=== PATIENT | female | born 1965 | race Caucasian/White ===

== ENCOUNTER → 2017-09-04 | Outpatient (CLI) | payer BC ==
[~2017-09-04] MED LIST: IRON; LEVSOD50; LEVSOD50 PO; PTU PO; Pepcid40 MG PO; [UNRECOGNIZED DRUG - OTHER]
== END | disposition home or self-care (01) ==
LOC: LAB SHORT 10:36
DX: R30.0 Dysuria (principal)
CPT/HCPCS: 87086

== ENCOUNTER → 2017-10-15 | Outpatient (CLI) | payer BC | LOC: OLS 13:01 | DX: N89.8 Other specified noninflammatory disorders of vagina (principal) | CPT/HCPCS: 87070; 87205 ==

== ENCOUNTER → 2018-01-25 | Outpatient (CLI) | payer BC | END | disposition home or self-care (01) | LOC: PLD 13:27 → LAB SHORT 13:27 | DX: D22.5 Melanocytic nevi of trunk (principal); L81.4 Other melanin hyperpigmentation | CPT/HCPCS: 88305 ==

== ENCOUNTER → 2018-02-08 | Outpatient (CLI) | payer BC | END | disposition home or self-care (01) | LOC: OLS 14:43 → LAB SHORT 14:43 | PROVIDERS: Nurse Practitioner Women's Health | DX: Z12.4 Encounter for screening for malignant neoplasm of cervix (principal); Z91.89 Other specified personal risk factors, not elsewhere classified | CPT/HCPCS: 87624; G0123 ==

== ENCOUNTER → 2019-04-19 | Outpatient (CLI) | payer BC ==
[2019-04-20 14:07] LABS: HPV 16 Negative (Negative); HPV 18 Negative (Negative); HPV OTHER HR TYPES Negative (Negative)
== END | disposition home or self-care (01) ==
LOC: LAB SHORT 11:35 → LAB 11:35
PROVIDERS: Nurse Practitioner Women's Health
DX: Z12.4 Encounter for screening for malignant neoplasm of cervix (principal); Z87.42 Personal history of other diseases of the female genital tract; Z91.89 Other specified personal risk factors, not elsewhere classified
CPT/HCPCS: 87624; G0123

== ENCOUNTER → 2019-09-14 | Outpatient (CLI) | payer BC | END | disposition home or self-care (01) | LOC: LAB SHORT 13:53 → LAB EV 13:53 | DX: R50.9 Fever, unspecified (principal) | CPT/HCPCS: 87081 ==

== ENCOUNTER → 2020-01-17 | Outpatient (CLI) | payer BC | END | disposition home or self-care (01) | LOC: LAB SHORT 17:30 → LAB 17:30 | PROVIDERS: Nurse Practitioner Family | DX: Z01.419 Encounter for gynecological examination (general) (routine) without abnormal findings (principal); Z11.51 Encounter for screening for human papillomavirus (HPV) | CPT/HCPCS: G0145 ==

== ENCOUNTER → 2020-03-06 | Outpatient (CLI) | payer BC | END | disposition home or self-care (01) | LOC: PLD 07:46 → LAB SHORT 07:46 | DX: N95.0 Postmenopausal bleeding (principal) | CPT/HCPCS: 88305 ==

== ENCOUNTER → 2020-07-22 | Outpatient (CLI) | payer BC ==
[2020-07-24 17:20] LABS: CORONAVIRUS (COVID19) CSH-NRL Negative (Negative)
== END ==
LOC: LAB SHORT 09:58 → LAB 09:58
PROVIDERS: Physician Assistant
DX: J06.9 Acute upper respiratory infection, unspecified (principal); Z20.828 Contact with and (suspected) exposure to other viral communicable diseases
CPT/HCPCS: U0003

== ENCOUNTER 2024-04-03 06:48 | Day surgery (SDC) | payer BC ==
[~2024-04-03] VITALS: Ht 172.7 cm; Wt 92.5 kg
[2024-04-03] MEDS ORDERED: propofoL 50 ML IV ONE (07:34)
[2024-04-03] MEDS ORDERED: Lactated Ringer's 1,000 ML IV ONE ×2 (07:34→07:48)
[2024-04-03 09:21] VITALS: BP 103/68
== END 2024-04-03 09:15 | disposition home or self-care (01) ==
LOC: ORSCSDS 06:48
PROVIDERS: Internal Medicine Gastroenterology
PROC: 0DBK8ZX Excision of Ascending Colon, Via Natural or Artificial Opening Endoscopic, Diagnostic (ICD-10-PCS; principal; 2024-04-03 08:00)
DX: Z12.11 Encounter for screening for malignant neoplasm of colon (principal); D12.2 Benign neoplasm of ascending colon; Z86.010 Personal history of colon polyps
CPT/HCPCS: 88305; J2704; J7120